=== PATIENT | male | born 1965 | race Caucasian/White ===

== ENCOUNTER 2017-11-12 06:04 | Inpatient (IN) | payer OTHER ==
[2017-11-12 06:54] LABS: ADD MAN DIFF? NO
[2017-11-12 06:56] LABS: BASO # 0.1 x10^3/uL (0.0-0.2); BASO % 1 % (0-3); EOS % 0 % (0-3); HEMATOCRIT 40.1 % (39.0-53.0); HEMOGLOBIN 14.1 g/dL (13.0-17.5); INFLUENZA A PATIENT NEGATIVE (NEGATIVE); INFLUENZA B PATIENT NEGATIVE (NEGATIVE); LYMPH # 0.9 x10^3/uL (1.0-4.8); LYMPH % 11 % (24-48); MEAN CORPUSCULAR HEMOGLOBIN 33 pg (25-35); MEAN CORPUSCULAR HGB CONC 35 g/dL (31-37); MEAN CORPUSCULAR VOLUME 94 fL (79-100); MONO % 13 % (0-9); NEUT # 6.2 x10^3uL (1.8-7.7); NEUT % 76 % (31-73); OBC FLU VALID; PLATELET COUNT 220 x10^3/uL (140-400); RED BLOOD COUNT 4.27 x10^6/uL (4.30-5.70); WHITE BLOOD COUNT 8.2 x10^3/uL (4.0-11.0)
[2017-11-12 07:10] LABS: ANION GAP 11 (6-14); BLOOD UREA NITROGEN 13 mg/dL (8-26); BUN/CREATININE RATIO 12 (6-20); CALCIUM 8.8 mg/dL (8.5-10.1); CARBON DIOXIDE 26 mmol/L (21-32); CHLORIDE 103 mmol/L (98-107); CREATININE 1.1 mg/dL (0.7-1.3); GFR 70.6; GLUCOSE 114 mg/dL (70-99); SODIUM 140 mmol/L (136-145)
[2017-11-12 07:16] LABS: ALBUMIN 3.9 g/dL (3.4-5.0); ALBUMIN/GLOBULIN RATIO 1.1 (1.0-1.7); ALK PHOS 88 U/L (46-116); ALT (SGPT) 21 U/L (16-63); AST (SGOT) 16 U/L (15-37); TOTAL BILIRUBIN 0.3 mg/dL (0.2-1.0); TOTAL PROTEIN 7.5 g/dL (6.4-8.2)
[2017-11-12 07:21] LABS: D-DIMER 0.45 ug/mlFEU (0.00-0.50)
[2017-11-12 07:22] LABS: TROPONINI < 0.017 ng/mL (0.000-0.055)
[2017-11-12 07:30] LABS: CKMB MASS < 0.5 ng/mL (0.0-3.6); CREATINE KINASE 55 U/L (39-308)
[2017-11-12 07:30] LABS: NT-PRO BNP 291 pg/mL (0-124)
[2017-11-12] MEDS: ACETAMINOPHEN 500 MG TABLET PO (08:09)
[2017-11-12] MEDS ORDERED: ONDANSETRON PF 4 MG/2 ML VIAL. IV (09:30)
[2017-11-12] MEDS ORDERED: PROMETH/CODEINE 6.25/10MG 5 ML SYRUP. PO (12:15)
[2017-11-12 12:20] LABS: TROPONINI < 0.017 ng/mL (0.000-0.055)
[2017-11-12] MEDS: MULTIVITAMIN with MINERAL TABLET. PO (13:14)
[2017-11-12] MEDS: FENOFIBRATE,MICRONIZED 134 MG CAPSULE PO (13:14)
[2017-11-12] MEDS: LISINOPRIL 10 MG TABLET PO (13:14)
[2017-11-12] MEDS ORDERED: HYDROcodone/CHLORPHEN POLIS 5 ML SUS.ER.12H PO (13:15)
[2017-11-12] MEDS ORDERED: CALCIUM CARBONATE 500 MG TAB.CHEW PO (13:15)
[2017-11-12] MEDS: BENZONATATE 100 MG CAPSULE. PO ×2 (14:21→21:26)
[2017-11-12 14:28] LABS: TROPONINI < 0.017 ng/mL (0.000-0.055)
[2017-11-12] MEDS: ENOXAPARIN 40 MG/0.4 ML SYRINGE. SQ (16:00)
[2017-11-12 16:20] LABS: TROPONINI < 0.017 ng/mL (0.000-0.055)
[2017-11-12] MEDS: ACETAMINOPHEN 325 MG TABLET. PO (17:39)
[2017-11-13 06:13] LABS: ADD MAN DIFF? NO
[2017-11-13 06:25] LABS: BASO % 1 % (0-3); EOS # 0.1 x10^3/uL (0.0-0.7); EOS % 2 % (0-3); LYMPH # 1.7 x10^3/uL (1.0-4.8); LYMPH % 35 % (24-48); MEAN CORPUSCULAR HEMOGLOBIN 33 pg (25-35); MEAN CORPUSCULAR HGB CONC 35 g/dL (31-37); MEAN CORPUSCULAR VOLUME 95 fL (79-100); MONO # 0.9 x10^3/uL (0.0-1.1); MONO % 17 % (0-9); NEUT # 2.3 x10^3uL (1.8-7.7); NEUT % 45 % (31-73); PLATELET COUNT 199 x10^3/uL (140-400); RED BLOOD COUNT 4.21 x10^6/uL (4.30-5.70); RED CELL DISTRIBUTION WIDTH 13.1 % (11.5-14.5)
[2017-11-13 06:42] LABS: ANION GAP 6 (6-14); BLOOD UREA NITROGEN 14 mg/dL (8-26); CALCIUM 8.7 mg/dL (8.5-10.1); CARBON DIOXIDE 30 mmol/L (21-32); CHLORIDE 106 mmol/L (98-107); CHOLESTEROL 131 mg/dL (0-200); CREATININE 1.1 mg/dL (0.7-1.3); GFR 70.6; GLUCOSE 107 mg/dL (70-99); HDLC 52 mg/dL (40-60); LDLC 68 mg/dL (0-100); NON-HDL CHOLESTEROL 79 mg/dL (0-129); POTASSIUM 4.2 mmol/L (3.5-5.1); SODIUM 142 mmol/L (136-145); TRIGLYCERIDES 53 mg/dL (0-150); VLDLC 11 mg/dL (0-40)
[2017-11-13 06:43] LABS: CHOLESTEROL/HDL RATIO 2.5
[2017-11-13] MEDS: MULTIVITAMIN with MINERAL TABLET. PO (09:47)
[2017-11-13] MEDS: FENOFIBRATE,MICRONIZED 134 MG CAPSULE PO (09:47)
[2017-11-13] MEDS: ACETAMINOPHEN 325 MG TABLET. PO (09:48)
[2017-11-13] MEDS: LISINOPRIL 10 MG TABLET PO (09:48)
[2017-11-13] MEDS: BENZONATATE 100 MG CAPSULE. PO (09:48)
== END 2017-11-13 12:00 | disposition home or self-care (01) | DRG 866 ==
LOC: ER 06:04 → 5 SOUTH 08:30
DX: B34.9 Viral infection, unspecified (principal); E78.5 Hyperlipidemia, unspecified; F17.210 Nicotine dependence, cigarettes, uncomplicated; J20.9 Acute bronchitis, unspecified; I10 Essential (primary) hypertension; K21.9 Gastro-esophageal reflux disease without esophagitis; Z88.5 Allergy status to narcotic agent; Z88.0 Allergy status to penicillin
CPT/HCPCS: 36415; 71046; 80048; 80053; 80061; 82553; 83735; 83880; 84484; 85025; 85379; 87804; 87804-59; 93005; 93306; 99285-25